=== PATIENT | male | born 1975 | race Caucasian/White ===

== ENCOUNTER → 2018-02-07 16:47 | Emergency (ER) | payer OTHER ==
[~2018-02-07 16:47] MED LIST: Cyclobenzaprine TAB* 10 MG PO ONE; Ketorolac INJ* 30 MG/ML 1 ML VIAL IM ONE; Lidocaine PATCH 5%* 1 PATCH ONE; Lidocaine PATCH 5%* 1 PATCH TRANSDERM SCH
--- NOTE | 2018-02-07 17:47 | ED ---
Back Pain - HPI Summary HPI Summary: 42-year-old male presents with back pain for the past couple weeks. He states he's been working more at work due the holidays and he has not had a break. 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 No injury. He states the pain feels like spasms. it is affecting the right side of his back. He states he feels like he has a knot in his back. He has tried meloxicam has for arthritis without relief. He denies any urinary symptoms. No fevers. no loss of bowel or bladder. No saddle anesthesia. No weakness, pain ,or numbness into his legs. is able to ambulate with normal gait. States his pain is worse at night when he developed spasms. Medical history has a history of gout and arthritis. - History of Current Complaint Chief Complaint: EDBackInjuryPain Stated Complaint: BACK PAIN Time Seen by Provider: 02/07/18 17:31 Pain Intensity: 5 - Allergies/Home Medications Allergies/Adverse Reactions: Allergies Allergy/AdvReac Type Severity Reaction Status Date / Time No Known Allergies Allergy Verified 02/07/18 17:01 Home Medications: Home Medications Meloxicam [Mobic] 15 mg PO DAILY 02/07/18 [History Confirmed 02/07/18] PMH/Surg Hx/FS Hx/Imm Hx Endocrine/Hematology History: Denies: Hx Diabetes, Hx Thyroid Disease Cardiovascular History: Denies: Hx Hypertension Respiratory History: Denies: Hx Asthma, Hx Chronic Obstructive Pulmonary Disease (COPD) GI History: Denies: Hx Ulcer Infectious Disease History: No Infectious Disease History: Denies: Hx Clostridium Difficile, Hx Hepatitis, Hx Human Immunodeficiency Virus (HIV), Hx of Known/Suspected MRSA, Hx Shingles, Hx Tuberculosis, Hx Known/ Suspected VRE, Hx Known/Suspected VRSA, History Other Infectious Disease, Traveled Outside the [place] in Last 30 Days - Family History Known Family History: Positive: Non-Contributory - Social History Alcohol Use: Weekly Substance Use Type: Reports: None Smoking Status (MU): Never Smoked Tobacco Review of Systems Negative: Fever Negative: Chest Pain Negative: Shortness Of Breath Positive: Myalgia - back pain All Other Systems Reviewed And Are Negative: Yes Physical Exam Triage Information Reviewed: Yes Vital Signs On Initial Exam: Initial Vitals Temp Pulse Resp BP Pulse Ox 98 F 64 16 126/82 100 02/07/18 17:02 02/07/18 17:02 02/07/18 17:02 02/07/18 17:02 02/07/18 17:02 Vital Signs Reviewed: Yes Appearance: Positive: Well-Appearing Skin: Positive: Warm, Dry Head/Face: Positive: Normal Head/Face Inspection Eyes: Positive: Normal, Conjunctiva Clear ENT: Positive: Pharynx normal Respiratory/Lung Sounds: Positive: Clear to Auscultation, Breath Sounds Present Cardiovascular: Positive: Normal, RRR Musculoskeletal: Positive: Strength/ROM Intact - back, Other - tenderness right side of back, no midline tenderness, neg SLR, sensation grossly intact, good pulses Neurological: Positive: Reflexes Intact - patella, Normal Gait Psychiatric: Positive: Normal Diagnostics - Vital Signs Vital Signs Temp Pulse Resp BP Pulse Ox 02/07/18 17:02 98 F 64 16 126/82 100 - Laboratory Lab Statement: Any lab studies that have been ordered have been reviewed, and results considered in the medical decision making process. Back Pain Course/Dx - Course Course Of Treatment: 42-year-old male presents with back pain for the past couple weeks. He states he's been working more at work due the holidays and he has not had a break. 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 No injury. He states the pain feels like spasms. it is affecting the right side of his back. He states he feels like he has a knot in his back. He has tried meloxicam has for arthritis without relief. He denies any urinary symptoms. No fevers. no loss of bowel or bladder. No saddle anesthesia. No weakness, pain ,or numbness into his legs. is able to ambulate with normal gait. States his pain is worse at night when he developed spasms. on exam has no midline tenderness back, tenderness right side of back. normal gait. neurovascular intact. with no midline tenderness and pain described as spasms did not get any imaging. will prescribe flexeril and lidocaine patch. told to est care with primary. patient understand and agrees with plan. - Diagnoses Differential Diagnosis/HQI/PQRI: Positive: Herniated Disc, Strain, Sprain Provider Diagnoses: Back pain Discharge - Sign-Out/Discharge Documenting (check all that apply): Patient Departure - Discharge Plan Condition: Good Disposition: HOME Prescriptions: Cyclobenzaprine TAB* [Flexeril 10 MG TAB*] 10 mg PO TID PRN #15 tab PRN Reason: Pain Lidocaine PATCH 5%* [Lidoderm 5% Patch*] 1 patch TRANSDERM DAILY #7 patch Patient Education Materials: Back Pain (ED) Referrals: [facility] [Outside] Additional Instructions: establish care with primary to follow up Take muscle relaxers three times a day Apply lidocaine patches to area for up to 12 hours in one 24 hour period Use ibuprofen or Tylenol for pain every 6 hours ice/heat area, move as much as possible Return to ED if develop any new or worsening symptoms - Billing Disposition and Condition Condition: GOOD Disposition: Home
[2018-02-07 18:06] VITALS: BP 121/82
== END | disposition home or self-care (01) ==
LOC: ED 16:47
DX: M54.9 Dorsalgia, unspecified (principal)
CPT/HCPCS: 96372; 99282; A9270-GY; J1885